=== PATIENT | female | born 1950 | race Caucasian/White ===

== ENCOUNTER → 2016-08-08 | Outpatient (CLI) | payer OTHER | LOC: FIMAGING 07:08 | PROVIDERS: ATTEND Surgery | DX: I83.893 Varicose veins of bilateral lower extremities with other complications (principal) ==

== ENCOUNTER 2017-06-08 08:13 | Day surgery (SDC) | payer OTHER ==
[2017-06-08] MEDS ORDERED: HEPARIN 10,000 UNIT/10 ML MDV IVP PRN (08:14)
[2017-06-08] MEDS ORDERED: MIDAZOLAM 2 MG/2 ML VIAL IVP PRN (08:14)
[2017-06-08] MEDS ORDERED: NS 1,000 ML IV ONE (08:14)
[2017-06-08] MEDS ORDERED: ceFAZolin 2 GM/SWFI 2 GM/20 ML SYR IVP ONE (08:14)
[2017-06-08] MEDS ORDERED: ONDANSETRON 4 MG/2 ML VIAL IVP ONE (08:14)
[2017-06-08] MEDS ORDERED: PROTAMINE SULFATE 50 MG/5 ML VIAL IVP PRN (08:14)
[2017-06-08] MEDS ORDERED: ALTEPLASE 2 MG VIAL IVP PRN (08:14)
[2017-06-08] MEDS ORDERED: fentaNYL 100 MCG/2 ML INJ IVP PRN (08:14)
[2017-06-08] MEDS ORDERED: FLUMAZENIL 0.5 MG/5 ML MDV IVP PRN (08:14)
[2017-06-08] MEDS ORDERED: NALOXONE HCL 0.4 MG/ML INJ IVP PRN (08:14)
[2017-06-08] MEDS ORDERED: MEPERIDINE 25 MG/ML SYR IVP PRN (08:14)
[2017-06-08] MEDS ORDERED: DEXMEDETOMIDINE IN 0.9 % NACL 100 ML IV SCH (08:30)
[2017-06-08] MEDS ORDERED: DEXMEDETOMIDINE HCL 400 MCG in NS 100 ML IV SCH (08:30)
[2017-06-08] MEDS ORDERED: LIDO/EPI 1% **for epidural** 30 ML SDV ONE (08:56)
[2017-06-08] MEDS ORDERED: SODIUM TETRADECYL SULFATE 3% 2 ML VIAL IV ONE (08:56)
[2017-06-08 09:14] VITALS: PULSE 72
[2017-06-08] MEDS ORDERED: NALOXONE HCL 0.4 MG/ML INJ ONE (09:23)
[2017-06-08] MEDS ORDERED: fentaNYL 100 MCG/2 ML INJ ONE ×2 (09:23→10:59)
[2017-06-08] MEDS ORDERED: MIDAZOLAM 2 MG/2 ML VIAL ONE ×2 (09:23→10:59)
[2017-06-08] MEDS ORDERED: FLUMAZENIL 0.5 MG/5 ML MDV IVP ONE (09:23)
--- NOTE | 2017-06-08 09:24 | PDPROPOC ---
Sedation Plan of Care Sedation Plan of Care: vital signs stable, mental status noted, patient educated of risks, benefits, alternatives, patient can tolerate sedation ASA Classification: ASA 2 Planned drugs: fentanyl, midazolam Mallampati Score: Class 1 Mallampati Reference Image: Patient passed 3-3-2 rule?: Yes
--- NOTE | 2017-06-08 09:24 | PDGENHP ---
History & Physical Chief Complaint: BILATERAL LE VARICOSE VEINS History of Present Illness: BILATERAL PAIN, EXTENSIVE LLE VARICOSE VEINS. RT SUPERFICIAL THROMBOPHLEBITIS. Pertinent Past, Social, Family History: TUBAL LIGATION, DOUBLE MASTECTOMY, NON SMOKER, KIDNEYI STONES, KIDNEY INFECTION Relevant Physical Exam: ROPEY VARICOSE VEINS ON LT. PHLEBIGTIS ON RT HAVE MOSTLY RESOLVED. PREVIOUS EXAM WAS 07/2016 Cardiorespiratory Assessment: RRR, CTA
[2017-06-08 11:19] VITALS: O2SAT 93
[2017-06-08 14:07] VITALS: BP 119/73
[2017-06-08 14:24] VITALS: RESP 18; TEMP 97.7
== END 2017-06-08 14:37 | disposition home or self-care (01) ==
LOC: FIMAGING 08:13
PROVIDERS: ATTEND Radiology Diagnostic Radiology
DX: I83.813 Varicose veins of bilateral lower extremities with pain (principal); I83.893 Varicose veins of bilateral lower extremities with other complications; Z87.442 Personal history of urinary calculi; Z86.72 Personal history of thrombophlebitis; Z90.13 Acquired absence of bilateral breasts and nipples
CPT/HCPCS: J0690; J2250; J2310; J3010

== ENCOUNTER → 2017-07-21 | Day surgery (SDC) | payer OTHER ==
[~2017-07-21] MED LIST: LIDO/EPI 1% **for epidural** 30 ML SDV ONE; SODIUM TETRADECYL SULFATE 3% 2 ML VIAL IV ONE
== END | disposition home or self-care (01) ==
LOC: FIMAGING 07:34
PROVIDERS: ATTEND Radiology Diagnostic Radiology
PROC: 3E033TZ Introduction of Destructive Agent into Peripheral Vein, Percutaneous Approach (ICD-10-PCS; principal; 2017-07-21)
PROC: 065P3ZZ Destruction of Right Saphenous Vein, Percutaneous Approach (ICD-10-PCS; principal; 2017-07-21)
DX: I83.891 Varicose veins of right lower extremity with other complications (principal); Z86.72 Personal history of thrombophlebitis

== ENCOUNTER → 2017-08-08 | Outpatient (CLI) | payer OTHER | LOC: FIMAGING 15:58 | PROVIDERS: ATTEND Radiology Diagnostic Radiology | DX: Z09 Encounter for follow-up examination after completed treatment for conditions other than malignant neoplasm (principal); Z86.79 Personal history of other diseases of the circulatory system ==

== ENCOUNTER → 2018-03-27 | Outpatient (CLI) | payer OTHER | LOC: CIMAGING 08:31 | PROVIDERS: ATTEND Nurse Practitioner | DX: R91.8 Other nonspecific abnormal finding of lung field (principal) | CPT/HCPCS: 71046-PO ==

== ENCOUNTER → 2018-04-10 | Outpatient (CLI) | payer OTHER ==
[~2018-04-10] MED LIST changes: +IOPAMIDOL (ISOVUE 370) 100 ML BTL IV ONE; -LIDO/EPI 1% **for epidural** 30 ML SDV ONE; -SODIUM TETRADECYL SULFATE 3% 2 ML VIAL IV ONE
== END ==
LOC: CIMAGING 13:20
PROVIDERS: ATTEND Nurse Practitioner
DX: R59.0 Localized enlarged lymph nodes (principal); J98.4 Other disorders of lung
CPT/HCPCS: 71275-PO; 82565-PO; Q9967

== ENCOUNTER → 2018-04-20 | Outpatient (CLI) | payer OTHER | LOC: CIMAGING 13:40 | PROVIDERS: ATTEND Nurse Practitioner | DX: R59.0 Localized enlarged lymph nodes (principal); Z85.3 Personal history of malignant neoplasm of breast; Z92.3 Personal history of irradiation | CPT/HCPCS: 76641-PO ==

== ENCOUNTER → 2018-07-11 | Outpatient (CLI) | payer OTHER | LOC: CLAB 11:35 | PROVIDERS: ATTEND Internal Medicine Pulmonary Disease | DX: J98.4 Other disorders of lung (principal); I27.21 Secondary pulmonary arterial hypertension; I27.20 Pulmonary hypertension, unspecified | CPT/HCPCS: 71046-PO ==

== ENCOUNTER → 2018-07-23 | Outpatient (CLI) | payer OTHER | LOC: CIMAGING 11:23 | PROVIDERS: ATTEND Internal Medicine Pulmonary Disease | DX: R93.89 Abnormal findings on diagnostic imaging of other specified body structures (principal); I77.810 Thoracic aortic ectasia; Z85.3 Personal history of malignant neoplasm of breast | CPT/HCPCS: 71250-PO ==